=== PATIENT | female | born 1935 | race Caucasian/White ===

== ENCOUNTER 2017-04-02 09:22 | Emergency (ER) | payer MEDICARE, BC ==
--- NOTE | ~2017-04-02 | EKG ---
PATIENT: THONY STORM UNIT #: [id number] Ventricular Rate: 100 BPM Atrial Rate: 100 BPM P-R Interval: 182 ms QRS Duration: 70 ms Q-T Interval: 342 ms QTC Calculation(Bezet): 441 ms P [place]: 19 degrees Calculated R [place]: -45 degrees Calculated T [place]: 20 degrees Diagnosis Line: Sinus rhythm with Premature atrial complexes Diagnosis Line: Left axis deviation Diagnosis Line: Borderline ECG Diagnosis Line: No previous ECGs available Diagnosis Line: Confirmed by ELEANOR ARGUELLES MD ([id number]) on 04/05/2017 Diagnosis Line: 6:59:23 AM INTERPRETING MD: BLANE GRIGSBY
--- NOTE | ~2017-04-02 | CT71 ---
[facility] A Service of [facility] RADIOLOGY TEXT RESULTS PATIENT: THONY STORM LOCATION: [facility] : 31 UNIT #: [id number] AGE: [address]: Dwaine Harris MD SEX: F ORDER DR: [id number] [facility] [address] [place], [place] [address] [id number] E MR#: [id number] Acc #: [id number] NAME: THONY STORM : 1935 SEX: F STUDY DATE/TIME: 04/02/2017 10:39 UNIT: [facility] ROOM: STUDY DESCRIPTION: CT Head Wo Contrast Attending Physician: Dwaine Harris M.D. Ordering Physician: Dwaine Harris M.D. MEDICAL IMAGING REPORT This report is preliminary unless electronic signature is present EXAM CT of the head without contrast INDICATION Dizziness since 08:00 this morning as well as right eye drainage. TECHNIQUE Axial CT images were obtained from the vertex of the skull through the skull base. No intravenous contrast material was administered. This CT examination was performed with one or more of the following radiation dose reduction techniques: automatic exposure control, adjustment of mA and/or kV according to patient size, and iterative reconstruction. FINDINGS No acute intracranial hemorrhage is identified. There is diffuse cerebral atrophy with compensatory ventricular dilatation which is in keeping with the age of 82. There is no midline shift or mass effect. No focal areas of decreased attenuation are seen. The patient does have bilateral basal ganglia calcifications. No calvarial fracture or aggressive osseous abnormality is seen. The paranasal sinuses appear clear. Dense atherosclerotic involvement of the cavernous carotid arteries is noted. No focal soft tissue abnormalities are seen. Orbits appear unremarkable. IMPRESSION No acute intracranial process is identified. Specifically, there is no evidence of acute hemorrhage, mass lesion or acute infarct. Dictated by... Nena Hart M.D. THIS IS AN ELECTRONICALLY VERIFIED REPORT Nena Hart M.D. at 04/02/2017 2:08 PM [facility] A Service of [facility] RADIOLOGY TEXT RESULTS PATIENT: THONY STORM [id number] [birth year] UNIT #: [id number] AGE: [address]: Dwaine Harris MD SEX: F ORDER DR: BELLA/adal TD: 04/02/2017 13:26 JOB #: [id number] MEDICAL IMAGING REPORT Page 1 of 1 COPY
--- NOTE | ~2017-04-02 | CR72 ---
[facility] A Service of [facility] & [facility] RADIOLOGY TEXT RESULTS PATIENT: THONY STORM LOCATION: [facility] : 31 UNIT #: [id number] AGE: [address]: Dwaine Harris MD SEX: F ORDER DR: [id number] [facility] [address] [place], [place] [address] [id number] E MR#: [id number] Acc #: [id number] NAME: THONY STORM : 1935 SEX: F STUDY DATE/TIME: 04/02/2017 10:24 UNIT: [facility] ROOM: STUDY DESCRIPTION: CR Chest Single View Portable Attending Physician: Dwaine Harris M.D. Ordering Physician: Dwaine Harris M.D. MEDICAL IMAGING REPORT This report is preliminary unless electronic signature is present EXAM Portable chest INDICATION Shortness of air and dizziness today. FINDINGS A portable view of the chest was obtained. The heart size and vascularity are normal and the lungs are clear. The bones are unremarkable. IMPRESSION No active disease. Dictated by... Jose Tan M.D. THIS IS AN ELECTRONICALLY VERIFIED REPORT Jose Tan M.D. at 04/02/2017 2:49 PM [place] TD: 04/02/2017 13:25 JOB #: [id number] MEDICAL IMAGING REPORT Page 1 of 1 COPY
[2017-04-02] MEDS ORDERED: GLUCOTROL PO (09:40)
[2017-04-02] MEDS ORDERED: METFORMIN PO (09:40)
[2017-04-02] MEDS ORDERED: DYRENIUM50 MG PO (09:41)
[2017-04-02] MEDS ORDERED: LOPRESSOR PO (09:41)
[2017-04-02] MEDS ORDERED: NAMZARIC 28 MG1 EACH PO (09:41)
[2017-04-02] MEDS ORDERED: ZOCOR PO (09:42)
[2017-04-02 10:16] LABS: BASOPHIL# 0.1 X10e3 (0-0.3); BASOPHIL% 0.9 % (0-2.5); EOSINOPHIL# 0.3 X10e3 (0-0.7); EOSINOPHIL% 3.9 % (0.0-7.0); HEMATOCRIT 38.5 % (35.0-45.0); HEMOGLOBIN 12.2 gm/dL (12.0-16.0); MEAN CELL VOLUME 83.1 FL (83-96); MEAN CORPUSCULAR HEMOGLOBIN 26.4 PG (28-34); MEAN CORPUSCULAR HGB CONC 31.8 g/dL (30-36); MEAN PLATELET VOLUME 8.8 FL (6.5-11.5); MONOCYTE# 0.7 X10e3 (0-1.0); MONOCYTE% 10.5 % (3.0-12.0); NEUTROPHIL# 3.9 X10e3 (1.5-7.1); NEUTROPHIL% 55.7 % (40-75); PLATELET COUNT 410 X10e3 (140-420); RED BLOOD COUNT 4.63 X10e (3.90-5.30); RED CELL DISTRIBUTION WIDTH 16.1 % (11.0-15.5)
[2017-04-02 10:18] LABS: DIFF IND NO
[2017-04-02 10:24] LABS: POC - CKMB 4.2 ng/mL (0.0-7.9); POC - TROPONIN <0.05 ng/mL (<=0.05)
[2017-04-02 10:40] LABS: ALBUMIN SERUM 3.9 g/dL (3.5-5.0); BILIRUBIN, DIRECT 0.1 mg/dL (0.0-0.2); BILIRUBIN,INDIRECT 0.2 mg/dL (0.0-0.9); BILIRUBIN,TOTAL 0.3 mg/dL (0.2-2.0); CALCIUM SERUM 9.9 mg/dL (8.4-10.2); GLOM FILT RATE Estimated 51.7 mL/min (>60); PROTEIN TOTAL SERUM 7.7 g/dL (6.0-8.3)
[2017-04-02 12:15] LABS: URINE SOURCE CLEAN CATCH
[2017-04-02 12:21] LABS: URINE APPEARANCE CLEAR; URINE BILIRUBIN NEG (NEG); URINE BLOOD NEG (NEG); URINE COLOR YELLOW; URINE GLUCOSE NEG (NEG); URINE KETONE NEG (NEG); URINE LEUKOCYTE ESTERASE NEG (NEG); URINE NITRATE NEG (NEG); URINE PH 6.5 (5-8); URINE PROTEIN NEG (NEG); URINE SPECIFIC GRAVITY 1.009 (1.003-1.035); URINE UROBILINOGEN 0.2 MG/DL (NEG)
[2017-04-02 12:24] LABS: CULTURE INDICATED? NO
[2017-04-02 12:28] LABS: POC - CKMB 5.8 ng/mL (0.0-7.9); POC - TROPONIN <0.05 ng/mL (<=0.05)
[2017-05-26] MEDS ORDERED: INVOKANA100 MG PO (08:53)
[2017-05-26] MEDS ORDERED: CALCIUM500 M1 (08:56)
== END 2017-04-02 12:50 | disposition home or self-care (01) ==
LOC: CED 09:22
PROVIDERS: Emergency Medicine
DX: R42 Dizziness and giddiness (principal); R06.00 Dyspnea, unspecified; E11.9 Type 2 diabetes mellitus without complications; I10 Essential (primary) hypertension; E78.5 Hyperlipidemia, unspecified; F03.90 Unspecified dementia, unspecified severity, without behavioral disturbance, psychotic disturbance, mood disturbance, and anxiety; Z79.84 Long term (current) use of oral hypoglycemic drugs; Z79.899 Other long term (current) drug therapy
CPT/HCPCS: 36415; 70450; 71010; 80048; 80076; 81003; 82553; 82947; 84484; 85025; 93005; 99285